=== PATIENT | female | born 1970 | race Caucasian/White ===

== ENCOUNTER 2023-12-13 06:15 | Day surgery (SDC) | payer BC ==
[~2023-12-13 06:15] MED LIST: Lactated Ringers 1,000 ML IV SCH; Lidocaine 2% 5 ML SDV ONE; Midazolam 1 MG/ML 2 ML SDV ONE; Propofol 200 MG/20 ML SDV ONE; Rocuronium 50 MG/5 ML Vial ONE; Sodium Chloride 0.9% 10 ML Syringe FLUSH PRN; Sodium Chloride 0.9% 10 ML Syringe FLUSH SCH; fentaNYL 100 MCG/2 ML SDV ONE
[2023-12-13] MEDS ORDERED: Ropivacaine 0.5% 5 MG/ML 30 ML SDV ONE (06:25)
[2023-12-13] MEDS: Lactated Ringers 1,000 ML IV SCH (06:30)
[2023-12-13] MEDS: oxyCODONE ER 10 MG TAB.ER PO ONE (06:37)
[2023-12-13] MEDS: Pregabalin 25 MG Cap PO ONE (06:37)
[2023-12-13] MEDS: Acetaminophen 325 MG Tab PO ONE (06:37)
[2023-12-13] MEDS ORDERED: Sodium Chloride 0.9% 100 ML ONE (07:03)
[2023-12-13] MEDS ORDERED: dexmedeTOMIDine HCl 200 MCG/2 ML SDV ONE (07:03)
[2023-12-13] MEDS ORDERED: ceFAZolin 2 GM Vial ONE (07:09)
[2023-12-13] MEDS ORDERED: HYDROmorphone 0.5 MG/0.5 ML Syringe IVPUSH PRN (07:24)
[2023-12-13] MEDS ORDERED: fentaNYL 100 MCG/2 ML SDV IVPUSH PRN (07:24)
[2023-12-13] MEDS: Scopalamine 1mg/3day Transdermal Patch TOP ONE (07:29)
[2023-12-13] MEDS ORDERED: Ketorolac 30 MG/ML SDV ONE (07:45)
[2023-12-13] MEDS ORDERED: Ondansetron 4 MG/2 ML SDV ONE (07:45)
[2023-12-13] MEDS: Tranexamic Acid 1,000 MG/10 ML Vial ONE (08:00)
[2023-12-13] MEDS ORDERED: Sugammadex Sodium 200 MG/2 ML VIAL IV ONE (08:00)
[2023-12-13] MEDS: Vancomycin 1 GM SDV ONE (08:00)
[2023-12-13] MEDS: Ondansetron 4 MG/2 ML SDV IVPUSH PRN (09:15)
== END 2023-12-13 12:30 | disposition home or self-care (01) ==
LOC: JD.SDS 06:15
PROVIDERS: ATTEND Orthopaedic Surgery
DX: M19.012 Primary osteoarthritis, left shoulder (principal); Z98.890 Other specified postprocedural states; Z79.899 Other long term (current) drug therapy; Z88.5 Allergy status to narcotic agent
CPT/HCPCS: 01638; 76000; 76000-26; 97161-GP; A9270-GY; C1713; C1769; C1776; J0690; J1885; J2250; J2405; J2704; J2795; J3010; J3370; J3490; J7120